=== PATIENT | male | born 1975 | race Caucasian/White ===

== ENCOUNTER 2018-11-04 07:24 | Day surgery (SDC) | payer BC ==
[2018-11-04] VITALS (20 sets, daily range): BP systolic 86–124; BP diastolic 47–76; PULSE 64–84; RESP 10–21; Ht 167.6 cm; Wt 118.7 kg
[~2018-11-04] VITALS: Ht 167.6 cm; Wt 118.7 kg
[2018-11-04] MEDS ORDERED: LIDOCAINE 1% (MDV) 20 ML INJ ONE (07:44)
[2018-11-04] MEDS ORDERED: IODIXANOL LOCM 100 ML BTL ONE (07:44)
[2018-11-04] MEDS ORDERED: FENO134C ORAL (08:02)
[2018-11-04] MEDS ORDERED: ASPI-817 ORAL (08:02)
[2018-11-04] MEDS ORDERED: NITR0.4T39 SL (08:03)
[2018-11-04] MEDS ORDERED: ATOR40TA68 ORAL (08:03)
[2018-11-04] MEDS ORDERED: AMLO1CAP8 ORAL (08:03)
[2018-11-04] MEDS ORDERED: DIAZEPAM 5 MG TAB PO SCH (08:30)
[2018-11-04] MEDS ORDERED: DIPHENHYDRAMINE 50 MG CAP PO SCH (08:30)
[2018-11-04] MEDS ORDERED: SOD CHLORIDE 0.45% 1,000 ML IV SCH (08:30)
[2018-11-04] MEDS ORDERED: FAMOTIDINE 20 MG TAB PO SCH (08:30)
[2018-11-04] MEDS ORDERED: MIDAZOLAM 1 MG/ML 2 ML INJ ONE (08:50)
[2018-11-04] MEDS ORDERED: FENTAnyl 50 MCG/ML VIAL ONE (08:50)
[2018-11-04] MEDS ORDERED: VERAPAMIL 5 MG INJ ONE (08:50)
[2018-11-04] MEDS ORDERED: NITROGLYCERIN (IC) 100 MCG/ML INJ ONE (08:51)
[2018-11-04] MEDS ORDERED: SOD CHLORIDE 0.9% 1,000 ML IV SCH (10:10)
--- NOTE | 2018-11-04 10:17 | SIPON ---
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
[2018-11-04] MEDS ORDERED: AL HYDROX/MG HYDROX/SIMETH 30 ML CUP PO PRN (10:30)
[2018-11-04] MEDS ORDERED: morphine 2 MG INJ IV PRN (10:30)
[2018-11-04] MEDS ORDERED: ACETAMINOPHEN 325 MG TAB PO PRN (10:30)
[2018-11-04] MEDS ORDERED: ONDANSETRON 4 MG INJ IV PRN (10:30)
--- NOTE | 2018-11-04 14:58 | CARRPT ---
DATE OF PROCEDURE: 11/04/2018 REASON FOR CATHETERIZATION: Chest pain, abnormal CTA, abnormal stress test. TYPE OF ANESTHESIA: Conscious. TYPE OF PROCEDURE: 1. Left heart catheterization. 2. Coronary angiography. 3. Moderate conscious sedation. ATTENDING PHYSICIAN: Bill Warner MD REFERRING PHYSICIAN: Dr. Green. INDICATION: Chest pain refractory to medical therapy with positive stress test findings and positive CTA. TYPE OF ANESTHESIA: Conscious and local. BRIEF HISTORY: Mr. Schroeder is a 43-year-old male with a history of hypertension, dyslipidemia, ongoin g tobacco usage, who initially had complaints of shortness of breath and subsequently underwent cardi ac stress testing showing positive anterior ischemia. The patient underwent a CTA revealing possible left main significant disease and therefore was sent for a cardiac catheterization and assess for po ssibly significant obstructive coronary artery disease lending to symptoms of shortness of breath, po sitive stress test findings and positive CTA. DESCRIPTION OF PROCEDURE: After informed consent was obtained, the patient was brought to [facility] cardiac catheterization lab where his right radial area was prepped and draped in the usual sterile fashion, 2% lidocaine was infiltrated into the right radial area in order to achiev e adequate anesthesia. Using the modified Seldinger technique, the radial artery was cannulated and a 6-Vietnamese arterial sheath was placed. A 6-Vietnamese JL3.5 catheter was used to cannulate the left main coronary ostium. With contrast injection, multiple views of the left coronary system were obtained. JL3.5 was removed with a guidewire and a JR4 was used to cannulate the right coronary arterial osti um. With contrast injection, multiple views of the right coronary system were obtained. JR4 was add itionally used to cross the aortic valve, measure LVEDP and then pulled back across the aortic valve to assess for significant gradient, which there was not and removed. Subsequently, at this time, the patient's sheath was removed. TR band was applied. This completed the procedure. There were no no viri complications. FINDINGS: CORONARY ANGIOGRAPHY: Left main 4.5 mm with a distal 30 to 40% stenosis. The circumflex proximally is a 3.5 mm vessel and circ AV groove has a 30% stenosis. The circ is a dominant vessel and th erefore gives off a left-sided PDA and posterolateral branch 2 and 2.5 mm respectively with no signif icant focal stenoses. There is subtle branching obtuse marginal 2.5 mm with no significant focal gris noses and a very small superior branching obtuse marginal sub 2 mm vessel with no significant focal s tenoses. The LAD proximally is a 3.5 mm vessel and in its mid portion there are luminal irregulariti es of 10% to 20%. There are several diagonals which branch proximally off the LAD with the 2 most amezquita perior branches being approximately 2 mm vessels with the most inferior branch having an eccentric-ap pearing 60% stenosis. The right coronary artery proximally is a 3.5 mm vessel, has a 30% to 40% sten osis shortly after its takeoff. The remainder of the right coronary artery is free from significant focal stenoses. It is a codominant vessel and gives off a 2.5 PDA with no significant focal stenoses and no significant posterolateral branch. Measurement of LVEDP of 14 to 16. No significant aortic stenosis by gradient. TOTAL FLUOROSCOPY TIME: 2.8 minutes. TOTAL CONTRAST: 50 mL. IMPRESSION: 1. Moderate primarily nonobstructive disease with questionable disease in a very small diagonal, alfredito lly a sub 2 mm vessel. 2. Preserved left ventricular systolic function. 3. No significant aortic stenosis by gradient. RECOMMENDATIONS: In light of procedure findings at this time: 1. Maximize medical management. 2. Aggressive risk factor reduction. 3. The patient will be readmitted to the same day surgery center for post-cath observation and gilberto nued management with probable discharge later this afternoon. 4. Would aggressively attempt smoking cessation. Dictated By: BILL MATTSON/OJ Conf#: [id number] DID#: [id number]
--- NOTE | 2018-11-05 18:04 | RADRPT ---
Vent Rate: 73 bpm RR Interval: 0 msec PA Interval: 134 msec QRS Duration: 76 msec QT Interval: 388 msec QTC Interval: 427 msec P-R-T [place]: 43 - 10 - 56 degrees Normal sinus rhythm with sinus arrhythmia Normal ECG Electronically Signed By: Brandon Cruz
== END 2018-11-04 13:10 | disposition home or self-care (01) ==
LOC: CCL 07:24 → SDS 07:24 → CCL 13:10
PROVIDERS: ATTEND Internal Medicine
DX: I25.10 Atherosclerotic heart disease of native coronary artery without angina pectoris (principal); I10 Essential (primary) hypertension; E78.5 Hyperlipidemia, unspecified; F17.200 Nicotine dependence, unspecified, uncomplicated
CPT/HCPCS: 71045; 80048; 80061; 85025; 85610; 85730; 93005; 93458; C1887; J1644; J2250; J3010; Q9967; Z7610; 90686